=== PATIENT | female | born 2000 | race Two or more races ===

== ENCOUNTER 2021-09-12 17:37 | Emergency (ER) | payer MEDICAID, OTHER ==
[~2021-09-12] VITALS: Ht 165.1 cm; Wt 90.7 kg
[2021-09-12 21:00] VITALS: BP 131/83
[2021-09-12] MEDS ORDERED: AZITTAB PO (22:15)
[2021-09-12] MEDS ORDERED: ACET-1304 PO (22:15)
[2021-09-12] MEDS ORDERED: PSEU1SYP6 PO (22:15)
[2021-09-12] MEDS ORDERED: PRED20TA2 PO (22:15)
== END 2021-09-12 22:40 | disposition home or self-care (01) ==
LOC: ER 17:37
DX: J06.9 Acute upper respiratory infection, unspecified (principal); R05.9 Cough, unspecified; R09.81 Nasal congestion; R50.9 Fever, unspecified; R53.83 Other fatigue; R51.9 Headache, unspecified; M79.10 Myalgia, unspecified site; Z20.822 Contact with and (suspected) exposure to COVID-19
CPT/HCPCS: 36415; 87426